=== PATIENT | male | born 1985 | race Caucasian/White ===

== ENCOUNTER 2023-04-08 13:06 | Emergency (ER) | payer MEDICAID ==
[~2023-04-08] VITALS: Ht 167.6 cm; Wt 91.6 kg
[2023-04-08 13:10] VITALS: BP_SYST 152; PULSE 115; RESP 18; TEMP 98.8; O2SAT 98
== END 2023-04-08 18:02 | disposition left against medical advice (07) ==
LOC: SED 13:06
DX: G51.0 Bell's palsy (principal); I10 Essential (primary) hypertension; Z53.21 Procedure and treatment not carried out due to patient leaving prior to being seen by health care provider
CPT/HCPCS: 99281